=== PATIENT | male | born 1995 | race Caucasian/White ===

== ENCOUNTER 2018-01-04 16:39 | Observation (INO) | payer BC ==
[~2018-01-04] VITALS: Ht 182.9 cm; Wt 76.4 kg
[2018-01-04] VITALS (10 sets, daily range): BP systolic 107–140; BP diastolic 47–92
[2018-01-04] MEDS ORDERED: MIDAZOLAM 2 MG/2 ML VIAL IVP ONE (16:50)
[2018-01-04] MEDS ORDERED: cefOXitin/DEX(*) 2GM/50ML PREM 50 ML IVPB ONE (16:50)
[2018-01-04] MEDS ORDERED: NORMOSOL R SOLN(*) 1000 ML BAG 1,000 ML IV PRN (16:50)
[2018-01-04] MEDS ORDERED: FAMOTIDINE(*) 20MG/50ML PREMIX 50 ML IVPB ONE (16:50)
[2018-01-04] MEDS ORDERED: LIDOCAINE/SOD BICARB 8.4% SYR ID ONE (16:50)
[2018-01-04] MEDS ORDERED: ROPIVACAINE 0.2% 20 ML VIAL ONE (17:00)
[2018-01-04] MEDS ORDERED: ONDANSETRON 4 MG/2 ML VIAL ONE (17:15)
[2018-01-04] MEDS ORDERED: SUGAMMADEX SOD 200 MG/2 ML SDV ONE (17:15)
[2018-01-04] MEDS ORDERED: KETOROLAC 30 MG/ML VIAL ONE (17:15)
[2018-01-04] MEDS ORDERED: METOCLOPRAMIDE 10 MG/2 ML SDV ONE (17:15)
[2018-01-04] MEDS ORDERED: PROPOFOL EMUL 10MG/ML 20 ML VL ONE (17:15)
[2018-01-04] MEDS ORDERED: ROCURONIUM BROM 10 MG/ML 5 ML ONE (17:15)
[2018-01-04] MEDS ORDERED: DEXAMETHASONE SOD 4 MG/ML VIAL ONE (17:15)
--- NOTE | 2018-01-04 17:20 | Post Operative Progress Note ---
Post Operative Progress Note Date: Jan 04, 2018 Time: 17:49 Surgeon: maggie Anesthesia: dr gaffney Pre-Op Diagnosis: appendicitis Post-Op Diagnosis: diverticulitis of right colon Procedure(s): NILA Santacruz MD Jan 04, 2018 17:20
--- NOTE | 2018-01-04 17:21 | Short(Outpt) Discharge Summary ---
Discharge Summary Reason for Hosp/Final Diag: (1) Appendicitis Hospital Course & Plan: laparoscopic appendectomy Departure Discharge to: Home Discharge Instructions Diet: Regular Activity: As Tolerated Special Instructions: ice to incisions for 48 hours remove bandage and shower tuesday to see me in one week, call [phone] for NILA Giraldo MD Jan 04, 2018 17:21
[2018-01-04] MEDS ORDERED: APAP/HYDROCODONE 325/5 TAB PO PRN (17:50)
[2018-01-04] MEDS ORDERED: ONDANSETRON 4 MG/2 ML VIAL IVP PRN (17:50)
[2018-01-04] MEDS ORDERED: MORPHINE 1 MG/ML 30 ML PCA IV PRN (17:50)
[2018-01-04] MEDS ORDERED: NALOXONE HCL 0.4 MG/ML VIAL IVP PRN (18:05)
--- NOTE | 2018-01-04 18:05 | HISTORY AND PHYSICAL ---
DATE OF ADMISSION: January 04, 2018 CHIEF COMPLAINT Right lower quadrant pain. HISTORY OF PRESENT ILLNESS This is a 22-year-old previously male who yesterday developed right lower quadrant pain. It has been persistent and severe in the right lower quadrant and increased. He had nausea and vomiting initially. He had a loose bowel movement yesterday, but no diarrhea today. He has had no previous history of similar type pain. He was seen at the urgent care. CBC showed his white count elevated at 18,000, and CT scan suggests appendicitis. PAST SURGICAL HISTORY None. ALLERGIES He has no known allergies. CURRENT MEDICATIONS Currently on no medications. REVIEW OF SYSTEMS No cardiac, pulmonary, liver or kidney disease, diabetes, hypertension. No history of deep vein thrombosis. PHYSICAL EXAMINATION GENERAL: A 22-year-old male. ABDOMEN: He has tenderness in the right lower quadrant with guarding. IMPRESSION Acute appendicitis. PLAN Laparoscopic appendectomy. We discussed the procedure and recovery with the patient. He seems to understand and wishes to proceed. LANA
--- NOTE | 2018-01-04 18:16 | EKG ---
FACILITY: [facility] - [place] PATIENT NAME: JOHN FATIMA : [id number] MR: [id number] V: [id number] EXAM DATE: ORDERING PHYSICIAN: NILA NEWSOME TECHNOLOGIST: EDELMIRA Davila Reason : BUNDLE BRANCH BLOCK Blood Pressure : / mmHG Vent. Rate : 095 BPM Atrial Rate : 095 BPM P-R Int : 154 ms QRS Dur : 146 ms QT Int : 386 ms P-R-T Axes : 063 071 -39 degrees QTc Int : 485 ms Normal sinus rhythm Left bundle branch block Abnormal ECG Confirmed by MUNIRA NORTON ([id number]) on 01/04/2018 6:21:26 PM Referred By: SAIMA Confirmed By:MUNIRA NORTON
--- NOTE | 2018-01-04 18:36 | Miscellaneous Provider Note ---
Miscellaneous Provider Note Note The patient was found to have a wide QRS on telemetry prior to surgery. There were no arrhythmias or blood pressure concerns during the surgery. In recovery , an ECG confirmed a LBBB. The patient denies chest pain with exertion, LE edema, COOK, and doesn't report palpitations. Heart - Regular rate and rhythm. Paradoxical split S2 only heard at left sternal border at 2nd intercostal space. Ext - no edema 22yo male with no significant medical history with an asymptomatic LBBB. I agree with Dr. Melgar that he should keep his ECG. I also told him to notify his PCP. I gave him reassurance that there was no concerns. MUNIRA NORTON MD Jan 04, 2018 18:36
[2018-01-04] MEDS: KETOROLAC 30 MG/ML VIAL IVP SCH ×3 (19:00→23:29)
[2018-01-04] MEDS: NORMOSOL R SOLN(*) 1000 ML BAG 1,000 ML IV PRN (19:36)
--- NOTE | 2018-01-04 19:49 | OPERATIVE REPORT 1 ---
EVENT DATE: January 04, 2018 SURGEON: Harinder Hayden MD ANESTHESIOLOGIST: Kunal Melgar MD ANESTHESIA: General. PREOPERATIVE DIAGNOSIS Acute appendicitis. POSTOPERATIVE DIAGNOSIS Diverticulitis of the right colon. PROCEDURE PERFORMED Laparoscopic appendectomy. DESCRIPTION OF PROCEDURE The patient was placed in the supine position and given general anesthetic. His abdomen was prepped and draped in a sterile fashion. Skin was anesthetized with 0.2% ropivacaine. A small incision was made above the umbilicus. A Veress needle was inserted. The abdomen was insufflated with CO2. We then placed a 5 mm port under direct vision. We then placed two ports in, a 5 mm in the left lower quadrant and a 10 mm in the suprapubic site. We placed the patient in Trendelenburg, rotated to the left. We went to the right lower quadrant. The appendix appeared to be normal, but the cecum was inflamed with a little exudate. There was no purulent material. There was a little bit of omentum stuck to it. This was pulled down, but again, no abscess cavity was noted. At this point, the appendix was removed with the Harmonic scalpel, taking down the mesoappendix to the appendiceal-cecal junction. We placed two 0 PDS Endoloops. We cut between the two PDS Endoloops, placed the appendix in an Endo Pouch, and removed it from the field. We inspected for bleeding. None was noted. We did a visualization of the small intestine. No evidence of Meckel diverticulum. This appeared to be originating in the cecal area where the preop CT scan had shown some diverticula. Ports were removed. Skin was closed with interrupted 4-0 Maxon. Steri-Strips and Airstrip were placed. [facility]
[2018-01-04] MEDS: PIPERACILLIN/TAZO*3.375GM VIAL 3.375 GM in NS(*) 0.9% 100 ML ADDVANT BAG 100 ML IVPB SCH (20:32)
[2018-01-05] VITALS: BP 106/47
[2018-01-05 01:00] VITALS: BP 102/55
[2018-01-05 02:00] VITALS: BP 99/52
[2018-01-05 03:00] VITALS: BP 127/67
[2018-01-05] MEDS: PIPERACILLIN/TAZO*3.375GM VIAL 3.375 GM in NS(*) 0.9% 100 ML ADDVANT BAG 100 ML IVPB SCH ×2 (03:04→09:33)
[2018-01-05] MEDS: NORMOSOL R SOLN(*) 1000 ML BAG 1,000 ML IV PRN (03:04)
[2018-01-05] MEDS: KETOROLAC 30 MG/ML VIAL IVP SCH (05:42)
[2018-01-05 05:45] LABS: PLATELET COUNT, AUTOMATED 209 K/uL (150-450)
--- NOTE | 2018-01-05 07:31 | General Surgery Progress Note ---
Subjective Progress Notes Subjective pt without complaints. pain much improved, no nausea or vomiting Physical Exam Vital Signs Date Time Temp Pulse Resp B/P (MAP) Pulse Ox O2 Delivery O2 Flow Rate FiO2 01/05/18 03:00 98.2 127/67 (87) 99 Nasal Cannula 1.0 01/05/18 02:00 50 01/04/18 19:03 17 General Appearance: Alert, Awake, No Acute Distress GI: Other (ssoft less tender) Result Diagram: 01/05/18 0535 Assessment and Plan Problems: (1) Appendicitis Assessment & Plan: laparoscopic appendectomy 01/04/18 doing well. explained the right colon diverticulitis. will try reg diet if he does well, home on oral antibiotics Exam Sepsis Risk: No Definite Risk NILA NEWSOME MD Jan 05, 2018 07:31
[2018-01-05 07:46] VITALS: BP 132/59
[2018-01-05] MEDS ORDERED: PANTOPRAZOLE SOD 40 MG IV VIAL IVP SCH (09:00)
[2018-01-05] MEDS ORDERED: AMOX-559 PO (10:16)
== END 2018-01-05 10:14 | disposition home or self-care (01) ==
LOC: OR 16:39 → MED 19:00
PROVIDERS: ADMIT Surgery; ATTEND Surgery
DX: K35.80 Unspecified acute appendicitis (principal); K57.30 Diverticulosis of large intestine without perforation or abscess without bleeding; I44.7 Left bundle-branch block, unspecified
CPT/HCPCS: 36415; 44970; 85025; 88304; 93005; G0378; J0694; J1100; J1885; J2405; J2543; J2704; J2765; J2795; J3490; J7050

== ENCOUNTER → 2018-01-04 | Outpatient (CLI) | payer BC ==
[~2018-01-04] MED LIST: AMOX-559 PO; DEXAMETHASONE SOD 4 MG/ML VIAL ONE; IOPAMIDOL 76% 75 ML INFUS BTL 75 ML ONE; KETOROLAC 30 MG/ML VIAL ONE; LIDOCAINE MPF 1% 5 ML VIAL ONE; METOCLOPRAMIDE 10 MG/2 ML SDV ONE; ONDANSETRON 4 MG/2 ML VIAL ONE; PROPOFOL EMUL(*) 10MG/ML 20 ML 20 ML ONE; SUGAMMADEX SOD 200 MG/2 ML SDV ONE; fentaNYL CITR 100 MCG/2 ML AMP ONE
--- NOTE | 2018-01-04 15:48 | RADIOLOGY IMAGING REPORT ---
FACILITY: [facility] - [place] PATIENT NAME: Jamey Mccann : 1995 MR: [id number] V: [id number] EXAM DATE: ORDERING PHYSICIAN: JOHN VELASQUEZ TECHNOLOGIST: Location: [facility] Patient: Jamey Mccann : 1995 Visit/Account:[id number] Date of Sevice: 01/04/2018 ADDENDUM #1 Also noted is a small amount of fluid surrounding the appendix which also a be suspicious for acute a ppendicitis or adjacent inflammatory process. Results were discussed by phone Dr. Newell 01/04/2018 3:56 PM. Report Dictated By: Dot Seaman MD at 01/04/2018 3:56 PM Report E-Signed By: Dot Seaman MD at 01/04/2018 3:57 PM ORIGINAL REPORT ABDOMEN/PELVIS WITH CONTRAST HISTORY: Right lower quadrant pain since last night TECHNIQUE: Following administration of IV contrast contiguous axial images acquired through the abdom en/pelvis. Coronal and sagittal reformatting also performed. Dose Lowering Technique One of the following dose optimization techniques was utilized in the performance of this exam: Autom ated exposure control; adjustment of the mA and/or kV according to the patient's size; or use of an i terative reconstruction technique. Specific details can be referenced in the facility's radiology C T exam operational policy. CONTRAST: 75 mL Isovue-370 COMPARISON: None. FINDINGS: Visualized lung bases: Negative. Hepatobiliary: Negative. Spleen: Negative. Adrenals: Negative. Pancreas: Negative. Kidneys ureters or bladder: Negative. Genitalia: Negative. GI: Vessels/spaces/nodes: There are several mildly prominent mesenteric lymph nodes in the right lower q uadrant measuring up to 1.1 cm in diameter Bones/soft tissues: Negative. Additional findings: None pertinent. IMPRESSION: The appendix is visualized in right lower quadrant and appears borderline dilated at 6.5-7 mm. Depen ding upon the clinical presentation acute appendicitis cannot be entirely excluded. Suggestion of several diverticula in the right-sided the colon Results were called to JOHN VELASQUEZ at 01/04/2018 3:43 PM. Report Dictated By: Dot Seaman MD at 01/04/2018 3:25 PM Report E-Signed By: Dot Seaman MD at 01/04/2018 3:44 PM WSN:[email or web address]
== END ==
LOC: CT 14:48
PROVIDERS: ATTEND Physician Assistant Medical
DX: K38.8 Other specified diseases of appendix (principal); R59.0 Localized enlarged lymph nodes; K57.30 Diverticulosis of large intestine without perforation or abscess without bleeding
CPT/HCPCS: 74177; J1100; J1885; J2001; J2405; J2704; J2765; J3010; Q9967

== ENCOUNTER → 2018-01-04 | Outpatient (REF) | payer BC ==
[~2018-01-04] MED LIST changes: -DEXAMETHASONE SOD 4 MG/ML VIAL ONE; -IOPAMIDOL 76% 75 ML INFUS BTL 75 ML ONE; -KETOROLAC 30 MG/ML VIAL ONE; -LIDOCAINE MPF 1% 5 ML VIAL ONE; -METOCLOPRAMIDE 10 MG/2 ML SDV ONE; -ONDANSETRON 4 MG/2 ML VIAL ONE; -PROPOFOL EMUL(*) 10MG/ML 20 ML 20 ML ONE; -SUGAMMADEX SOD 200 MG/2 ML SDV ONE; -fentaNYL CITR 100 MCG/2 ML AMP ONE
[2018-01-04 13:44] LABS: PLATELET COUNT, AUTOMATED 270 K/uL (150-450)
== END ==
PROVIDERS: ATTEND Physician Assistant Medical
DX: R10.31 Right lower quadrant pain (principal)
CPT/HCPCS: 82040; 82247; 82310; 82374; 82435; 82565; 82947; 84075; 84132; 84155; 84295; 84450; 84460; 84520; 85025